=== PATIENT | male | born 1995 | race American Indian/Alaskan Native ===

== ENCOUNTER 2018-09-06 21:04 | Emergency (ER) | payer OTHER ==
[2018-09-06 21:28] VITALS: BP 161/100
[2018-09-06] MEDS ORDERED: TYLENOL PO ONE (23:29)
[2018-09-06] MEDS ORDERED: TYLENOL ONE (23:33)
[2018-09-07] MEDS ORDERED: SOLU-Medrol IM ONE (00:41)
[2018-09-07] MEDS ORDERED: ROCEPHIN IM ONE (00:41)
[2018-09-07] MEDS ORDERED: XYLOCAINE 1% MPF 5 mL INFILTRATI ONE (00:41)
[2018-09-07] MEDS ORDERED: FIORICET PO ONE (00:42)
[2018-09-07] MEDS ORDERED: TORADOL IM ONE (00:42)
--- NOTE | 2018-09-07 01:22 | Emergency Department Report ---
- General Chief Complaint: Earache Stated Complaint: LEFT EARACHE Time Seen by Provider: 09/07/18 00:25 Source: patient Mode of arrival: Ambulatory Limitations: No Limitations - History of Present Illness Initial Comments: Patient is a 23-year-old [place] male with a history of [id number] diabetes who presents to the ED, and the acute onset persistent nasal and sinus congestion, frontal sinus pressure and headache, sore throat, severe left ear pain and dry cough for the last 3 days. Patient states that in the last 12 hours he has not been able to sleep because of pain in the left ear and a headache. Patient denies fever, chills, nausea, vomiting, dizziness, chest pain, shortness of breath, abdominal pain, diarrhea or change in vision and neck pain. MD Complaint: cough, sore throat, rhinorrhea, nasal congestion, sinus pain, other (severe left ear pain) -: Sudden, days(s) (3) Severity: severe Severity scale (0 -10): 8 Quality: sharp, aching Consistency: constant Improves With: nothing Worsens With: nothing Context: sick contacts Associated Symptoms: headache, rhinorrhea, nasal congestion, sore throat, cough. denies: chills, myalgias, chest pain, shortness of breath, abdominal pain, nausea, vomiting, diarrhea, rash, confusion, right sweats, epistaxis, ear pain Treatments Prior to Arrival: none - Related Data Previous Rx's Medication Instructions Recorded Last Taken Type Acetaminophen/Codeine [Tylenol 1 tab PO Q6H PRN 3 Days #15 tab 09/07/18 Unknown Rx /Codeine # 3 tab] Amoxicillin/Potassium Clav 1 each PO Q12H #20 tablet 09/07/18 Unknown Rx [Augmentin 875-125 Tablet] Ibuprofen [Motrin] 800 mg PO Q8HR PRN #20 tablet 09/07/18 Unknown Rx Ofloxacin 0.3% [Floxin] 1 drop OT Q12H #5 ml 09/07/18 Unknown Rx methylPREDNISolone [Medrol] 4 mg PO DAILY #21 tab.ds.pk 09/07/18 Unknown Rx Allergies Allergy/AdvReac Type Severity Reaction Status Date / Time No Known Allergies Allergy Verified 09/06/18 21:08 ED Review of Systems ROS: Stated complaint: LEFT EARACHE Other details as noted in HPI Comment: All other systems reviewed and negative Constitutional: no symptoms reported, see HPI. denies: chills, fever, malaise, weakness Eyes: as per HPI. denies: eye pain, eye discharge, vision change ENT: ear pain (left), throat pain, congestion. denies: dental pain Respiratory: no symptoms reported, see HPI, cough. denies: orthopnea, shortness of breath, SOB with exertion, SOB at rest, wheezing Cardiovascular: as per HPI. denies: chest pain, palpitations, dyspnea on exertion, paroxysmal nocturnal dyspnea Endocrine: no symptoms reported, see HPI. denies: excessive sweating, flushing, intolerance to cold, intolerance to heat, increased hunger, increased thirst, increased urine Gastrointestinal: as per HPI. denies: abdominal pain, nausea, vomiting, diarrhea, hematochezia Genitourinary: as per HPI. denies: urgency, hematuria, testicular mass Musculoskeletal: as per HPI, arthralgia, myalgia. denies: back pain Skin: as per HPI. denies: rash, lesions, change in color, change in hair/nails, pruritus Neurological: as per HPI, headache. denies: paresthesias, abnormal gait, vertigo Psychiatric: as per HPI Hematological/Lymphatic: as per HPI ED Past Medical Hx - Past Medical History Previous Medical History?: Yes Hx Diabetes: Yes - Surgical History Past Surgical History?: No - Social History Smoking Status: Current Every Day Smoker Substance Use Type: None - Medications Home Medications: Home Medications Medication Instructions Recorded Confirmed Last Taken Type Acetaminophen/Codeine [Tylenol 1 tab PO Q6H PRN 3 Days #15 tab 09/07/18 Unknown Rx /Codeine # 3 tab] Amoxicillin/Potassium Clav 1 each PO Q12H #20 tablet 09/07/18 Unknown Rx [Augmentin 875-125 Tablet] Ibuprofen [Motrin] 800 mg PO Q8HR PRN #20 tablet 09/07/18 Unknown Rx Ofloxacin 0.3% [Floxin] 1 drop OT Q12H #5 ml 09/07/18 Unknown Rx methylPREDNISolone [Medrol] 4 mg PO DAILY #21 tab.ds.pk 09/07/18 Unknown Rx ED Physical Exam - General Limitations: No Limitations General appearance: alert, in no apparent distress - Head Head exam: Present: atraumatic, normocephalic, normal inspection - Eye Eye exam: Present: normal appearance, PERRL, EOMI. Absent: conjunctival injection, periorbital tenderness Pupils: Present: normal accommodation - ENT ENT exam: Present: normal exam, normal orophraynx, mucous membranes moist, normal external ear exam, other (Severely erythematous left TM with swelling, tender frontal and maxillary sinuses) - Neck Neck exam: Present: normal inspection, full ROM, lymphadenopathy. Absent: tenderness, meningismus - Respiratory Respiratory exam: Present: normal lung sounds bilaterally. Absent: respiratory distress, rhonchi, chest wall tenderness, accessory muscle use, prolonged expiratory - Cardiovascular Cardiovascular Exam: Present: normal rhythm, tachycardia, normal heart sounds - GI/Abdominal GI/Abdominal exam: Present: soft, normal bowel sounds. Absent: tenderness, guarding, hyperactive bowel sounds, hypoactive bowel sounds, organomegaly - Rectal Rectal exam: Present: deferred - Extremities Exam Extremities exam: Present: normal inspection, full ROM, normal capillary refill - Back Exam Back exam: Present: normal inspection, full ROM. Absent: CVA tenderness (R), CVA tenderness (L), muscle spasm, vertebral tenderness - Neurological Exam Neurological exam: Present: alert, oriented X3, CN II-XII intact, normal gait, reflexes normal - Psychiatric Psychiatric exam: Present: normal affect, anxious - Skin Skin exam: Present: warm, dry, intact, normal color ED Course Vital Signs 09/06/18 09/06/18 21:09 23:32 Temperature 99.6 F Pulse Rate 109 H Respiratory 18 18 Rate Blood Pressure 161/100 O2 Sat by Pulse 99 Oximetry - Reevaluation(s) Reevaluation #1: 09/07/18 01:23 Patient is alert and oriented 3 and is not in distress but tachycardic during triage. Patient was treated for pain in the ED based on the physical exam findings. On reevaluation, the patient's tachycardia resolved with treatment. Patient's pain is also well controlled. ED Medical Decision Making - Medical Decision Making Patient is alert and oriented 3 and is not in distress but anxious because of pain. Patient was treated in the ED for pain and on reevaluation, patient [facility] stable and tachycardia resolved. Patient discharged home on medications and advised to follow-up with his primary care physician in 7-10 days for reevaluation. The patient is advised to return to the ED immediately if symptoms get worse. - Differential Diagnosis acute otitis media, acute frontal sinusitis, acute bronchitis Critical care attestation.: If time is entered above; I have spent that time in minutes in the direct care of this critically ill patient, excluding procedure time. ED Disposition Clinical Impression: Acute otitis media with effusion of left ear Acute frontal sinusitis Qualifiers: Recurrence: non-recurrent Qualified Code(s): J01.10 - Acute frontal sinusitis, unspecified Acute bronchitis Qualifiers: Bronchitis organism: unspecified organism Qualified Code(s): J20.9 - Acute bronchitis, unspecified Disposition: DC- TO HOME OR SELFCARE Is pt being admited?: No Does the pt Need Aspirin: No Condition: Stable Instructions: Acute Bronchitis (ED), Otitis Media (ED), Sinusitis (ED) Additional Instructions: Take medications with food, drink plenty of fluids and follow up with your primary care physician as advised. Return to the ED immediately if symptoms get worse. Prescriptions: Amoxicillin/Potassium Clav [Augmentin 875-125 Tablet] 1 each PO Q12H #20 tablet Ofloxacin 0.3% [Floxin] 1 drop OT Q12H #5 ml methylPREDNISolone [Medrol] 4 mg PO DAILY #21 tab.ds.pk Ibuprofen [Motrin] 800 mg PO Q8HR PRN #20 tablet PRN Reason: Pain , Severe (7-10) Acetaminophen/Codeine [Tylenol /Codeine # 3 tab] 1 tab PO Q6H PRN 3 Days #15 tab PRN Reason: Pain , Severe (7-10) Referrals: KELLI BEGUM MD [Primary Care Provider] - 3-5 Days Forms: Work/School Release Form(ED) Time of Disposition: 01:29 Print Language: MICRONESIAN
== END 2018-09-07 02:05 | disposition home or self-care (01) ==
LOC: ED 21:04
DX: H65.02 Acute serous otitis media, left ear (principal); J01.10 Acute frontal sinusitis, unspecified; J01.00 Acute maxillary sinusitis, unspecified; J20.9 Acute bronchitis, unspecified; E11.9 Type 2 diabetes mellitus without complications; F17.200 Nicotine dependence, unspecified, uncomplicated
CPT/HCPCS: 96372; 99282; J0696; J1885; J2930